=== PATIENT | female | born 1940 | race Caucasian/White ===

== ENCOUNTER 2024-01-27 10:27 | Emergency (ER) | payer MEDICARE, MEDICAID, SELFPAY ==
[2024-01-27 10:26] VITALS: PULSE 55; TEMP 36.7
[2024-01-27 10:39] VITALS: BP 108/71; PULSE 71; O2SAT 90
--- NOTE | 2024-01-27 11:23 | ED.FALL ---
HPI - Fall General Chief Complaint: Fall Stated Complaint: GLF Time Seen by Provider: 01/27/24 10:50 History of Present Illness HPI Narrative: Patient is an 83-year-old female with severe dementia who presents ER after a fall. She cannot walk but was trying to get up for breakfast to walk. She struck her head on the ground. No blood thinning medications. Large laceration. Unknown last tetanus shot But family suspect she is up-to-date since she has been in multiple facilities for memory care. 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 Family would only like the laceration she had sutured in no other imaging or testing performed. Related Data Allergies Allergy/AdvReac Type Severity Reaction Status Date / Time lorazepam AdvReac Hallucinati Verified 01/27/24 10:32 ng Review of Systems Review of Systems: ROS unobtainable: Yes unobtainable due to mental status PMFSH Past Medical History Medical History (Updated 01/27/24 @ 11:30 by Trent Bourne MD) Dementia Exam Narrative: GENERAL: Well-appearing, well-nourished, and in no acute distress. HEAD: Normocephalic, L-shaped laceration right forehead 4.5 cm in length. EYES: PERRL and EOMI. ENT: Mucous membranes moist. NECK: Supple. CHEST: Clear to auscultation. No respiratory distress. HEART: Regular rate and rhythm. Normal peripheral pulses.. EXTREMITIES: Normal range of motion. No edema. SKIN: Warm, dry, no rash. NEURO: Alert and oriented x0. PSYCH: Normal mood and affect. Course Course Emergency Course: laceration repaired. tetanus updated. Discharged. Vital Signs Vital signs: Vital Signs Temperature 98.0 F 01/27/24 10:26 Pulse Rate 55 L 01/27/24 10:26 Oxygen Delivery Room Air 01/27/24 10:26 Temperature 98.0 F 01/27/24 10:26 Pulse Rate 71 01/27/24 10:39 Blood Pressure 108/71 01/27/24 10:39 Pulse Oximetry 90 01/27/24 10:39 Oxygen Delivery Room Air 01/27/24 10:26 Procedures Laceration Laceration 1: Date: 01/27/24 Time: 11:20 Site: face Side (If applicable): right Size (cm): 4.5 Description: irregular Depth: simple, single layer (into subcu) Local Anesthetic: lidocaine 1% and with epi Amount of anesthesia used (mL): 3 Pre-repair: wound explored and irrigated ====== Skin Level ====== Skin layer closed with: nylon Size (cm): 5-0 Number of sutures: 8 Technique: simple, interrupted ====== Subcutaneous Layer ====== ====== Muscle Layer ====== ====== Tendon Layer ====== Discharge Plan Discharge Clinical Impression: Forehead laceration Patient Disposition: Home, Self-Care Condition: Stable Instructions: Laceration (ED) Additional Instructions: Remove the sutures in 7 days. Return to the ER if the wound is draining pus, the skin is red and hot, or patient has fever over 100.4? F. Follow-up/Referrals: UNKNOWN,DOCTOR [Primary Care Provider] - 1 Week
[2024-01-27] MEDS: TETANUS,DIPHTHERIA,AC PERTUSSIS ADULT (0.5 ML) BOOSTRIX IM (11:47)
--- NOTE | 2024-01-27 12:19 | PC.NURSE ---
attempted to call report to ranjeet jain without answer. left a message for ranjeet jain to all this RN back for report.
[2024-01-27 13:23] VITALS: BP 110/89; PULSE 68; RESP 21; TEMP 36.6; O2SAT 93
== END 2024-01-27 13:24 | disposition hospice, home (50) ==
LOC: ANHED 11:38
PROVIDERS: Emergency Provider Emergency Medicine
DX: S01.81XA Laceration without foreign body of other part of head, initial encounter (principal); Z23 Encounter for immunization; F03.C0 Unspecified dementia, severe, without behavioral disturbance, psychotic disturbance, mood disturbance, and anxiety; W18.30XA Fall on same level, unspecified, initial encounter
CPT/HCPCS: 12013; 90471; 90715; 99282